=== PATIENT | female | born 1930 | race Caucasian/White ===

== ENCOUNTER 2017-03-13 10:08 | Emergency (ER) | payer MEDICARE, OTHER ==
--- NOTE | 2017-03-13 11:03 | RAD ---
CHEST 1 VIEW: COMPARISON: 07/13/15. HISTORY: Chest pain. FINDINGS: Portable upright chest demonstrates atherosclerosis of the aorta. Sternotomy wires are noted. Coron jerad artery stent is identified. Normal cardiac silhouette. The pulmonary vessels and hilum are norm al. Chronic changes in the lung bases. Hyperinflation. No mass. No consolidation. No pneumothora x or osseous abnormalities. IMPRESSION: 1. Atherosclerosis. 2. Coronary artery stent. 3. No acute cardiopulmonary process. POS: [facility]
[2017-03-13 11:16] LABS: #Eosinphils 0.1 thou/uL (0.0-0.7); #Lymphocytes 3.3 thou/uL (1.20-3.40); #Monocytes 0.6 thou/uL (0.11-0.59); #Neutrophils 6.4 thou/uL (1.40-6.50); %Basophils 0.4 % (0.0-1.0); %Eosinophils 1.3 % (0.0-10.0); %Lymphocytes 31.1 % (21.0-51.0); %Monocytes 5.9 % (0.0-10.0); Hematocrit 37.2 % (36.0-47.0); Mean Platelet Volume 7.3 fL (7.4-10.4); Red Blood Cell (RBC) Count 4.19 mill/uL (4.20-5.40); White Blood Cell (WBC) Count 10.5 thou/uL (4.8-10.8)
[2017-03-13 11:28] LABS: Prothrombin Time 13.5 SEC (12.0-14.7)
[2017-03-13 11:29] LABS: PTT 32.1 SEC (22.9-36.1)
[2017-03-13 11:46] LABS: ALT (SGPT) 10 U/L (8-55); AST (SGOT) 15 U/L (5-34); Alkaline Phosphatase 78 U/L (40-150); Anion Gap 12 mmol/L (10-20); BUN (Urea Nitrogen) 21 mg/dL (9.8-20.1); Bilirubin, Total 0.4 mg/dL (0.2-1.2); CK (CPK) 28 U/L (29-168); Calc. Creatinine Clearance 0 mL/min (70-130); Calcium 9.1 mg/dL (7.8-10.44); Carbon Dioxide 24 mmol/L (23-31); Chloride 108 mmol/L (98-107); Estimated GFR-MDRD 56; Globulin 2.1 g/dL (2.4-3.5); Protein, Total 6.1 g/dL (6.0-8.3)
[2017-03-13 11:49] LABS: Troponin I Less than 0.010 ng/mL (< 0.028)
[2017-03-13 12:26] LABS: Bilirubin Small (Negative); Blood, Urine Negative (Negative); Glucose, Urine (Dipstick) Negative (Negative); Ketone, Urine Trace mg/dL (Negative); Nitrite Negative (Negative); Protein, Urine (Dipstick) Trace mg/dL (Neg-Trace)
[2017-03-13 12:31] LABS: Bacteria/HPF 1+ HPF (None Seen)
[2017-03-13 12:47] LABS: RBC/HPF 0-3 HPF (0-3)
[2017-03-13] MEDS ORDERED: ISOVUE-370 76%-LOCM 1 ML ONE (13:13)
--- NOTE | 2017-03-13 13:45 | CT ---
CT ANGIOGRAM CHEST WITH 3D RENDERING: HISTORY: An 86-year-old female with shortness of breath, chest pain, palpitations, and cough. FINDINGS: Postop midline sternotomy. Three-vessel coronary artery calcific disease. Atherosclerotic calcific changes of the aorta with some ectasia but no focal aneurysm. No significant CT evidence for acute p ulmonary embolism. Bibasilar pleural-based parenchymal changes, probably subsegmental atelectasis an d/or dependent positioning. IMPRESSION: 1. No significant CT evidence for acute pulmonary embolism. 2. Pleural-based parenchymal changes posteriorly, evidence for some positional change or subsegmenta l atelectasis. 3. Atherosclerosis of the aorta without focal aneurysm. 4. Three vessel coronary artery calcific disease with postoperative midline sternotomy. POS: [facility]
[2017-03-13 14:49] LABS: Troponin I 0.012 ng/mL (< 0.028)
== END 2017-03-13 16:20 | disposition home or self-care (01) ==
LOC: ERS 10:08
DX: R06.02 Shortness of breath (principal); N39.0 Urinary tract infection, site not specified; I48.91 Unspecified atrial fibrillation; I10 Essential (primary) hypertension; E03.9 Hypothyroidism, unspecified; I25.10 Atherosclerotic heart disease of native coronary artery without angina pectoris; F03.90 Unspecified dementia, unspecified severity, without behavioral disturbance, psychotic disturbance, mood disturbance, and anxiety
CPT/HCPCS: 36415; 71010; 71275; 80053; 81003; 81015; 82553; 84484; 85025; 85379; 85610; 85730; 87077; 87086; 93005; 96374; J0696

== ENCOUNTER 2017-10-15 12:56 | Observation (INO) | payer MEDICARE, OTHER ==
[2017-10-15 13:42] LABS: #Basophils 0.1 thou/uL (0.0-0.2); #Eosinphils 0.1 thou/uL (0.0-0.7); #Lymphocytes 2.5 thou/uL (1.20-3.40); #Monocytes 0.5 thou/uL (0.11-0.59); #Neutrophils 6.4 thou/uL (1.40-6.50); %Basophils 0.6 % (0.0-1.0); %Eosinophils 0.9 % (0.0-10.0); %Lymphocytes 26.3 % (21.0-51.0); %Monocytes 5.6 % (0.0-10.0); %Neutrophils 66.6 % (42.0-75.0); Hemoglobin 13.1 g/dL (12.0-16.0); Mean Corpuscular HGB CONC 34.6 g/dL (32.0-36.0); Mean Corpuscular Hemoglobin 30.5 pg (27.0-31.0); Mean Corpuscular Volume 88.2 fL (78.0-98.0); Mean Platelet Volume 7.2 fL (7.4-10.4); Platelet Count 294 thou/uL (130-400); Red Blood Cell (RBC) Count 4.29 mill/uL (4.20-5.40); White Blood Cell (WBC) Count 9.6 thou/uL (4.8-10.8)
--- NOTE | 2017-10-15 13:43 | RAD ---
SINGLE VIEW CHEST: Date: 10/15/17 COMPARISON: 03/13/17. HISTORY: Chest pain. FINDINGS: Single view of the chest shows normal sized cardiomediastinal silhouette. The patient is status post sternotomy. There is no evidence of consolidation, mass, or pleural effusion. IMPRESSION: No evidence of acute cardiopulmonary disease. POS: [facility]
[2017-10-15 14:03] LABS: ALT (SGPT) 10 U/L (8-55); AST (SGOT) 17 U/L (5-34); Albumin 4.3 g/dL (3.4-4.8); Alkaline Phosphatase 60 U/L (40-150); Anion Gap 13 mmol/L (10-20); BUN (Urea Nitrogen) 23 mg/dL (9.8-20.1); Bilirubin, Total 0.5 mg/dL (0.2-1.2); CK (CPK) 49 U/L (29-168); Calc. Creatinine Clearance 0 mL/min (70-130); Calcium 9.5 mg/dL (7.8-10.44); Carbon Dioxide 24 mmol/L (23-31); Chloride 105 mmol/L (98-107); Estimated GFR-MDRD 33; Glucose 104 mg/dL (83-110); Potassium 4.8 mmol/L (3.5-5.1); Protein, Total 6.3 g/dL (6.0-8.3); Sodium 137 mmol/L (136-145)
[2017-10-15 14:09] LABS: CKMB 0.7 ng/mL (0-6.6); Troponin I Less than 0.010 ng/mL (< 0.028)
[2017-10-15] MEDS ORDERED: Ondansetron ODT 4 MG TAB PO PRN (16:42)
--- NOTE | 2017-10-15 16:51 | HP ---
PRIMARY CARE PROVIDER: Dr. Bayron Gaxiola. CHIEF COMPLAINT: Referred to [facility] by [facility] for chest pain, syncope. HISTORY OF PRESENT ILLNESS: The patient had some mild upper chest tightness this morning, took a nitroglycerin. Pain was brief. She was doing well. She walked around her bed, passed out, was _caught by____ care provider. She was out 3-4 seconds. She is now alert, feels well and desires to go home. Denies any orthopnea, shortness of breath, sweats, or nausea. PAST MEDICAL HISTORY: Pertinent for a similar episode a little over a year ago. She has a history of coronary artery disease status post coronary artery bypass graft in 2007, hypothyroidism home therapy, hypertension, dyslipidemia, some mild dementia. In addition to her bypass graft, she has had a hysterectomy. CURRENT MEDICATIONS: Omeprazole 20 mg, atorvastatin 10 mg a day, Eliquis 2.5 mg a day, Lisinopril 10 mg a day, and Pristiq 50 mg a day. ALLERGIES: No known drug allergies. SOCIAL HISTORY: Lives with her . She has a daughter, who is power of real estate attorney and surrogate decision maker. No tobacco. No alcohol or drug use. Apparently, she was a DNR previously. I am waiting for the family to talk to me to confirm this. FAMILY HISTORY: Stroke in her mother. Heart disease and hypertension in other members of the family. REVIEW OF SYSTEMS: General: No headaches, dizziness. Vision: No double vision, blurred vision, flashing lights. Ears: No ear pain or drainage. Nose : No bleeding. Pharynx: No oral lesions. No trouble swallowing. Cardiac: See present illness. No recent chest pain. She was evaluated for chest pain a couple of years ago. No orthopnea or paroxysmal nocturnal dyspnea. Respirations: No cough, wheezing or asthma. Gastrointestinal: No nausea, vomiting, diarrhea or constipation. Genitourinary: No hematuria, dysuria. Extremities: No muscle or joint pain. No rashes. Neurological: No strokes, seizures or focal weakness. Psychiatric: Mild dementia, pleasant. No sign of any behavioral disturbance or severe underlying dementia. Skin: No bruises, bleeding or rash. Heme/Lymph: No tender or swollen lymph nodes in axilla, inguinal or cervical area. PHYSICAL EXAMINATION: GENERAL: She is an alert, pleasant, cheerful lady, oriented x3 at the present time. VITAL SIGNS: Blood pressure 164/73, pulse 55, respirations 17, temperature 97.4. HEENT: Reveal pupils equal, round. Extraocular movements are intact. Sclerae are intact. Tympanic membranes clear. Nose is clear. Oral mucous membranes are wet. NECK: Supple without jugular venous distention, adenopathy or thyromegaly. CHEST: Clear to auscultation and percussion. HEART: Regular rate and rhythm. First and second heart sounds are clear. There are no appreciated murmurs or gallops. ABDOMEN: Soft, bowel sounds are normal. There is no hepatosplenomegaly, no mass, no rebound, no bruits. EXTREMITIES: Reveal no cyanosis, clubbing or edema. PULSES: Carotid, radial, and femoral pulses were intact, symmetric. SKIN: Warm and dry without bruises or rash. HEME/LYMPH: No tender or swollen lymph nodes in axilla, inguinal or cervical area. NEUROLOGIC: Cranial nerves II-XII are intact. Deep tendon reflexes symmetric. Moves all extremities. LABORATORY AND X-RAY FINDINGS: EKG sinus rhythm with first degree AV block and no ST-T segment changes, reviewed by me. Chest x-ray: No cardiomegaly, CHF or infiltrate. She does have post-median sternotomy changes. A CT scan of the thorax was done without screening D-dimer, no evidence for pulmonary embolus. Chemistries are normal except for BUN of 23 and a creatinine of 1.49. CBC is normal. ADMITTING DIAGNOSES: Chest pain, known coronary artery disease, syncope post- nitroglycerin, first degree AV block, dementia, hypertension, and hypothyroidism. PLAN: Place on monitor. Continue home medicines, serial troponins. The patient had a carotid ultrasound done a year ago, which showed no stenosis. I see no need to repeat it at this time. If serial enzymes are normal, I suspect she can be discharged briefly. KASSIE
[2017-10-15] MEDS ORDERED: Enoxaparin Sodium 30 MG/0.3 ML SYRINGE SC SCH (17:00)
[2017-10-15 17:18] LABS: Troponin I Less than 0.010 ng/mL (< 0.028)
[2017-10-15 18:31] LABS: Troponin I Less than 0.010 ng/mL (< 0.028)
[2017-10-15 19:18] VITALS: BMI 18.0
[2017-10-15] MEDS ORDERED: Ondansetron ODT 4 MG TAB SL PRN (19:18)
[2017-10-15] MEDS ORDERED: Acetaminophen 325 MG TAB PO PRN (19:18)
[2017-10-15] MEDS ORDERED: Ondansetron HCl/PF 4 MG/2 ML Vial IVP PRN (19:18)
[2017-10-15 20:00] LABS: Troponin I Less than 0.010 ng/mL (< 0.028)
[2017-10-15] MEDS ORDERED: Atorvastatin Calcium 10 MG TAB PO SCH (21:00)
[2017-10-15] MEDS: Apixaban 2.5 MG TAB PO SCH (21:00)
[2017-10-15] MEDS: Acetaminophen 325 MG TAB PO PRN (21:02)
[2017-10-16] MEDS: Acetaminophen 325 MG TAB PO PRN (05:10)
[2017-10-16 05:55] LABS: Hemoglobin 12.4 g/dL (12.0-16.0); Platelet Count 275 thou/uL (130-400)
[2017-10-16] MEDS ORDERED: Levothyroxine Sodium 75 MCG TAB PO SCH (06:00)
[2017-10-16 06:05] LABS: Anion Gap 11 mmol/L (10-20); BUN (Urea Nitrogen) 25 mg/dL (9.8-20.1); Calc. Creatinine Clearance 29 mL/min (70-130); Carbon Dioxide 25 mmol/L (23-31); Chloride 107 mmol/L (98-107); Estimated GFR-MDRD 47; Glucose 87 mg/dL (83-110); Potassium 3.9 mmol/L (3.5-5.1); Sodium 139 mmol/L (136-145)
[2017-10-16 08:52] VITALS: TEMP 97.8
[2017-10-16] MEDS ORDERED: Venlafaxine HCl XR 75 MG CAP PO SCH (09:00)
[2017-10-16] MEDS ORDERED: Aspirin 325 MG TAB PO SCH (09:00)
[2017-10-16] MEDS ORDERED: Lisinopril 10 MG TAB PO SCH (09:00)
--- NOTE | 2017-10-16 09:06 | DIS ---
TRANSFER OF CARE NOTE PRIMARY CARE PHYSICIAN: Dr. Bayron Gaxiola DATE OF ADMISSION: 10/15/2017 DATE OF DISCHARGE: 10/16/2017 DISCHARGE DISPOSITION: Home. FINAL DIAGNOSES: 1. Chest pain, unspecified. 2. Coronary artery disease. 3. Syncope. 4. Dementia without behavioral disturbance. DISCHARGE MEDICATIONS: Same as home medicines, desvenlafaxine extended release 50 mg a day, Lipitor 10 mg a day, Eliquis 2.5 mg twice a day, levothyroxine 75 mcg a day, omeprazole 20 mg a day, Lisinopr il 10 mg a day. ALLERGIES: No known drug allergies. DIET: Heart healthy diet. CODE STATUS: Full. HOSPITAL COURSE: The patient presented to the emergency room with episode of chest tightness. She t ook nitroglycerin and then fainted. She has a history of coronary artery bypass graft, some 10 years ago. Her EKG revealed mild first degree AV block with no ST-T segment changes. She had no evidence of CHF. BUN and creatinine were mildly elevated 23 and 1.49. Cardiac enzymes were normal. She was monitored. She has no arrhythmia. Cardiac enzymes were normal. Cardiac enzymes normal today. She is being discharged without further workup. Family was cautioned about having the patient sit down if she has chest tightness with use of nitroglycerin. She is being discharged. CONSULTATIONS: None. PROCEDURES: None. FOLLOWUP: To be followed up by PCP in 1 week.
[2017-10-16 09:59] VITALS: BP 159/67
[2017-10-16] MEDS: Apixaban 2.5 MG TAB PO SCH (10:01)
== END 2017-10-16 10:39 | disposition home or self-care (01) ==
LOC: ERS 12:56 → 2SW 15:49
PROVIDERS: ADMIT Internal Medicine; ATTEND Internal Medicine
DX: R07.9 Chest pain, unspecified (principal); I25.10 Atherosclerotic heart disease of native coronary artery without angina pectoris; R55 Syncope and collapse; F03.90 Unspecified dementia, unspecified severity, without behavioral disturbance, psychotic disturbance, mood disturbance, and anxiety; E03.9 Hypothyroidism, unspecified; E78.5 Hyperlipidemia, unspecified; I10 Essential (primary) hypertension; Z79.01 Long term (current) use of anticoagulants; Z79.899 Other long term (current) drug therapy
CPT/HCPCS: 71045; 80048; 80053; 82550; 82553; 82565; 84484 ×2; 85014; 85018; 85025; 85049; 93005; 94760 ×3; 96372; 99285; G0378; 36415; A4216; J1650